=== PATIENT | male | born 1970 | race Caucasian/White ===

== ENCOUNTER → 2016-09-03 | Outpatient (CLI) | payer MEDICARE, MEDICAID ==
[~2016-09-03] MED LIST: IBUP200C PO
== END | disposition home or self-care (01) ==
LOC: WOUND 09:25
PROVIDERS: ATTEND Physician Assistant
DX: L89.44 Pressure ulcer of contiguous site of back, buttock and hip, stage 4 (principal); L89.150 Pressure ulcer of sacral region, unstageable; G82.21 Paraplegia, complete; M46.28 Osteomyelitis of vertebra, sacral and sacrococcygeal region; M86.5 Other chronic hematogenous osteomyelitis; S31.829D Unspecified open wound of left buttock, subsequent encounter; Z68.29 Body mass index [BMI] 29.0-29.9, adult; X58.XXXD Exposure to other specified factors, subsequent encounter; Z43.3 Encounter for attention to colostomy
CPT/HCPCS: 97597; 97598

== ENCOUNTER → 2016-09-11 | Outpatient (CLI) | payer MEDICARE, MEDICAID ==
[~2016-09-11] MED LIST changes: +FAMO20TA7 PO; +GUAI5SYR PO; +HEPA5000 SQ; +MUPI22OI2 TP
== END | disposition home or self-care (01) ==
LOC: WOUND 12:56
PROVIDERS: ATTEND Nurse Practitioner Family
DX: L89.44 Pressure ulcer of contiguous site of back, buttock and hip, stage 4 (principal); L89.150 Pressure ulcer of sacral region, unstageable; G82.21 Paraplegia, complete; K94.00 Colostomy complication, unspecified; M86.5 Other chronic hematogenous osteomyelitis; M46.28 Osteomyelitis of vertebra, sacral and sacrococcygeal region; E43 Unspecified severe protein-calorie malnutrition; Z68.29 Body mass index [BMI] 29.0-29.9, adult; Z86.14 Personal history of Methicillin resistant Staphylococcus aureus infection
CPT/HCPCS: 15273; 15274; G0463; Q4172; WOU0463

== ENCOUNTER 2017-01-07 22:02 | Inpatient (IN) | payer MEDICARE, MEDICAID ==
[~2017-01-07] VITALS: Ht 182.9 cm; Wt 93.0 kg
[2017-01-07] MEDS ORDERED: HYDROmorphone 1 MG/ML, 1ML IVPush PRN (23:00)
[2017-01-07] MEDS ORDERED: SODIUM CHLORIDE FLUSH 10ML SYR IVF ONE (23:00)
[2017-01-07] MEDS ORDERED: SODIUM CHLORIDE 0.9% 1,000ML IVBOLUS ONE (23:00)
[2017-01-07] MEDS ORDERED: ONDANSETRON 2MG/ML, 2ML IVPush ONE (23:00)
[2017-01-07] MEDS ORDERED: HYDROmorphone 1 MG/ML, 1ML ONE (23:12)
[2017-01-07] MEDS ORDERED: ONDANSETRON 2MG/ML, 2ML ONE (23:12)
[2017-01-07 23:20] LABS: ASPARTATE AMINO TRANSFERASE 10 U/L (15-37); BLOOD UREA NITROGEN 18 mg/dL (7-18)
[2017-01-08] MEDS ORDERED: VANCOMYCIN PER PHARMACY MC PRN
[2017-01-08] MEDS ORDERED: NS + 20MEQ KCL 1,000 ML IV SCH (00:01)
[2017-01-08] MEDS ORDERED: HYDROcodone/APAP 5/325 TABLET PO PRN (00:30)
[2017-01-08] MEDS ORDERED: morphine SULFATE 10 MG/ML, 1ML IVPush PRN (00:30)
[2017-01-08] MEDS ORDERED: DOCUSATE 100 MG CAPSULE PO PRN (00:30)
[2017-01-08] MEDS ORDERED: PHARMACOKINETIC MONITORING MC PRN (00:30)
[2017-01-08] MEDS ORDERED: ONDANSETRON 2MG/ML, 2ML IVPush PRN (00:30)
[2017-01-08] MEDS ORDERED: POLYETHYLENE GLYCOL 17 GM PACKET PO PRN (00:30)
[2017-01-08] MEDS ORDERED: VANCOMYCIN 2,000 MG in SODIUM CHLORIDE 0.9% 500 ML IV ONE (01:00)
[2017-01-08 01:12] VITALS: BP 107/51
[2017-01-08] MEDS: ENOXAPARIN 40 MG/0.4 ML SQ SCH ×2 (01:34→22:22)
[2017-01-08 02:54] VITALS: BP 106/53
[2017-01-08] MEDS ORDERED: DIPHENHYDRAMINE 50 MG CAPSULE PO PRN (03:30)
[2017-01-08] MEDS ORDERED: DIPHENHYDRAMINE 50 MG CAPSULE ONE (03:33)
[2017-01-08] MEDS: ACETAMINOPHEN 325 MG TABLET PO PRN (03:36)
[2017-01-08] MEDS ORDERED: DIPHENHYDRAMINE 50 MG CAPSULE PO ONE (03:46)
[2017-01-08 07:16] VITALS: BP 98/58
[2017-01-08] MEDS: ERTAPENEM 1 GM in SODIUM CHLORIDE 0.9% 50 ML IV SCH (07:57)
[2017-01-08] MEDS: SENNA/DOCUSATE TABLET PO SCH (07:57)
[2017-01-08 14:38] VITALS: BP 100/62
[2017-01-08] MEDS ORDERED: VANCOMYCIN 1,800 MG in SODIUM CHLORIDE 0.9% 250 ML IV SCH (19:30)
[2017-01-08 20:25] VITALS: BP 117/67
[2017-01-09 02:00] VITALS: BP 115/73
[2017-01-09 05:55] LABS: ASPARTATE AMINO TRANSFERASE 11 U/L (15-37); BLOOD UREA NITROGEN 12 mg/dL (7-18)
[2017-01-09 07:40] VITALS: BP 108/71
[2017-01-09] MEDS: ZINC SULFATE 220 MG CAPSULE PO SCH (08:35)
[2017-01-09] MEDS: ERTAPENEM 1 GM in SODIUM CHLORIDE 0.9% 50 ML IV SCH (08:35)
[2017-01-09] MEDS: MULTIVITAMIN 1 TABLET PO SCH (08:35)
[2017-01-09] MEDS: SENNA/DOCUSATE TABLET PO SCH (08:36)
[2017-01-09] MEDS: DAKIN'S SOLUTION 1/4 STRENGTH 1,000 ML IRRIG SOLN EXT SCH (10:00)
[2017-01-09] MEDS: VANCOMYCIN 1,800 MG in SODIUM CHLORIDE 0.9% 250 ML IV SCH ×2 (13:53→23:13)
[2017-01-09 14:00] VITALS: BP 108/56
[2017-01-09] MEDS: ACETAMINOPHEN 325 MG TABLET PO PRN (18:08)
[2017-01-09 20:06] VITALS: BP 118/71
[2017-01-10] MEDS: ENOXAPARIN 40 MG/0.4 ML SQ SCH ×2 (02:01→23:51)
[2017-01-10 02:02] VITALS: BP 115/75
[2017-01-10 08:49] VITALS: BP 120/82
[2017-01-10] MEDS: DAKIN'S SOLUTION 1/4 STRENGTH 1,000 ML IRRIG SOLN EXT SCH (09:00)
[2017-01-10] MEDS: SENNA/DOCUSATE TABLET PO SCH (09:00)
[2017-01-10 09:39] VITALS: BP 126/63
[2017-01-10] MEDS: MULTIVITAMIN 1 TABLET PO SCH (09:45)
[2017-01-10] MEDS: ZINC SULFATE 220 MG CAPSULE PO SCH (09:45)
[2017-01-10 13:22] VITALS: BP 109/71
[2017-01-10] MEDS: ERTAPENEM 1 GM in SODIUM CHLORIDE 0.9% 50 ML IV SCH (16:11)
[2017-01-10] MEDS: VANCOMYCIN 1,800 MG in SODIUM CHLORIDE 0.9% 250 ML IV SCH (17:30)
[2017-01-10] MEDS ORDERED: OMNIPAQUE 350 MG/ML, 100ML BOTTLE ONE (20:52)
[2017-01-10 21:23] VITALS: BP 116/62
[2017-01-11 01:58] VITALS: BP 126/73
[2017-01-11] MEDS: VANCOMYCIN 1,800 MG in SODIUM CHLORIDE 0.9% 250 ML IV SCH ×2 (05:15→17:29)
[2017-01-11 05:54] LABS: BLOOD UREA NITROGEN 15 mg/dL (7-18)
[2017-01-11 07:49] VITALS: BP 107/66
[2017-01-11] MEDS: SENNA/DOCUSATE TABLET PO SCH (09:00)
[2017-01-11] MEDS: DAKIN'S SOLUTION 1/4 STRENGTH 1,000 ML IRRIG SOLN EXT SCH (09:00)
[2017-01-11] MEDS ORDERED: BUPIVACAINE/PF 0.5% ONE (09:08)
[2017-01-11] MEDS ORDERED: EPINEPHRINE 1 MG/ML, 1ML ONE (09:08)
[2017-01-11] MEDS ORDERED: PROPOFOL 10 MG/ML, 20ML ONE (09:28)
[2017-01-11] MEDS ORDERED: CEFOTETAN 2 GM ONE (09:28)
[2017-01-11] MEDS ORDERED: DEXAMETHASONE 4 MG/ML, 1ML ONE (09:28)
[2017-01-11] MEDS ORDERED: ROCURONIUM 10 MG/ML ONE (09:28)
[2017-01-11] MEDS ORDERED: ONDANSETRON 2MG/ML, 2ML ONE (09:28)
[2017-01-11] MEDS ORDERED: ACETAMINOPHEN 325 MG TABLET PO PRN (10:30)
[2017-01-11] MEDS ORDERED: METOCLOPRAMIDE 5 MG/ML, 2ML IV PRN (10:30)
[2017-01-11] MEDS ORDERED: ONDANSETRON 2MG/ML, 2ML IVPush PRN (10:30)
[2017-01-11] MEDS ORDERED: OXYcodone 5 MG/5 ML ORAL.SOL UDC PO PRN (10:30)
[2017-01-11] MEDS ORDERED: hydrALAzine 20 MG/ML, 1ML IV PRN (10:30)
[2017-01-11] MEDS ORDERED: LABETALOL 5MG/ML, 20ML IV PRN (10:30)
[2017-01-11] MEDS: FENTANYL PF 100 MCG/2ML IV PRN ×2 (13:12→13:25)
[2017-01-11] MEDS ORDERED: HYDROcodone/APAP 7.5-325MG/15ML UDC PO ONE (13:30)
[2017-01-11] MEDS: HYDROmorphone 1 MG/ML, 1ML IV PRN ×5 (13:32→22:12)
[2017-01-11] MEDS ORDERED: SUGAMMADEX 200 MG/2 ML IVPush ONE (13:51)
[2017-01-11] MEDS ORDERED: KETOROLAC 30 MG/1 ML IVPush ONE (14:30)
[2017-01-11] MEDS ORDERED: ONDANSETRON 2MG/ML, 2ML IV PRN (15:00)
[2017-01-11] MEDS ORDERED: HYDROmorphone 1 MG/ML, 1ML IV PRN (15:00)
[2017-01-11] MEDS ORDERED: OXYcodone/APAP 5/325MG TABLET PO PRN (15:00)
[2017-01-11] MEDS ORDERED: DIPHENHYDRAMINE 50 MG/ML, 1ML IV PRN (15:00)
[2017-01-11] MEDS ORDERED: LORazepam 2 MG/ML, 1ML IV PRN (15:00)
[2017-01-11] MEDS ORDERED: DIPHENHYDRAMINE 25 MG CAPSULE PO PRN (15:00)
[2017-01-11] MEDS ORDERED: LORazepam 1MG TABLET PO PRN (15:00)
[2017-01-11] MEDS: ZINC SULFATE 220 MG CAPSULE PO SCH (16:08)
[2017-01-11] MEDS: POTASSIUM CHLORIDE 20 MEQ in SODIUM CHLORIDE 0.9% 1,000 ML IV SCH (16:08)
[2017-01-11] MEDS: MULTIVITAMIN 1 TABLET PO SCH (16:08)
[2017-01-11] MEDS: ERTAPENEM 1 GM in SODIUM CHLORIDE 0.9% 50 ML IV SCH (16:08)
[2017-01-11 16:26] VITALS: BP 100/67
[2017-01-11 18:37] VITALS: BP 101/64
[2017-01-11] MEDS: KETOROLAC 30 MG/1 ML IV SCH (20:03)
[2017-01-12] MEDS: HYDROmorphone 1 MG/ML, 1ML IV PRN ×5 (00:09→13:09)
[2017-01-12 00:43] VITALS: BP 131/68
[2017-01-12] MEDS: KETOROLAC 30 MG/1 ML IV SCH ×4 (02:09→20:11)
[2017-01-12 05:17] VITALS: BP 100/63
[2017-01-12] MEDS: VANCOMYCIN 1,800 MG in SODIUM CHLORIDE 0.9% 250 ML IV SCH (05:30)
[2017-01-12 05:45] LABS: ASPARTATE AMINO TRANSFERASE 10 U/L (15-37); BLOOD UREA NITROGEN 15 mg/dL (7-18)
[2017-01-12 08:40] VITALS: BP 98/61
[2017-01-12] MEDS: ENOXAPARIN 40 MG/0.4 ML SQ SCH (09:00)
[2017-01-12] MEDS: MULTIVITAMIN 1 TABLET PO SCH (09:00)
[2017-01-12] MEDS: DAKIN'S SOLUTION 1/4 STRENGTH 1,000 ML IRRIG SOLN EXT SCH (09:00)
[2017-01-12] MEDS: ZINC SULFATE 220 MG CAPSULE PO SCH (09:12)
[2017-01-12] MEDS: SENNA/DOCUSATE TABLET PO SCH (09:12)
[2017-01-12] MEDS ORDERED: MAGNESIUM SULFATE PMX 2GM/50ML 50 ML IV ONE (12:00)
[2017-01-12 15:03] VITALS: BP 113/72
[2017-01-12 15:35] LABS: IS PT STATUS REG ER OR PRE ER? NO
[2017-01-12] MEDS: ERTAPENEM 1 GM in SODIUM CHLORIDE 0.9% 50 ML IV SCH (16:12)
[2017-01-12] MEDS: POTASSIUM CHLORIDE 20 MEQ in SODIUM CHLORIDE 0.9% 1,000 ML IV SCH ×2 (16:12→22:09)
[2017-01-12] MEDS: MORPHINE SULFATE 4 MG/ML, 1ML IVPush PRN (20:10)
[2017-01-12 20:23] VITALS: BP 117/69
[2017-01-12 22:49] LABS: IS PT STATUS REG ER OR PRE ER? NO
[2017-01-13] MEDS: MORPHINE SULFATE 4 MG/ML, 1ML IVPush PRN ×3 (00:23→16:24)
[2017-01-13] MEDS: KETOROLAC 30 MG/1 ML IV SCH ×5 (03:21→22:32)
[2017-01-13 03:28] VITALS: BP 123/69
[2017-01-13 04:05] LABS: BLOOD UREA NITROGEN 13 mg/dL (7-18)
[2017-01-13 04:23] LABS: IS PT STATUS REG ER OR PRE ER? NO
[2017-01-13 07:47] VITALS: BP 114/78
[2017-01-13] MEDS: MAGNESIUM OXIDE 400 MG TABLET PO SCH (08:17)
[2017-01-13] MEDS: ZINC SULFATE 220 MG CAPSULE PO SCH (08:17)
[2017-01-13] MEDS: MULTIVITAMIN 1 TABLET PO SCH (08:17)
[2017-01-13] MEDS: SENNA/DOCUSATE TABLET PO SCH (08:17)
[2017-01-13] MEDS: ENOXAPARIN 40 MG/0.4 ML SQ SCH (08:18)
[2017-01-13] MEDS: DAKIN'S SOLUTION 1/4 STRENGTH 1,000 ML IRRIG SOLN EXT SCH (09:00)
[2017-01-13] MEDS: ERTAPENEM 1 GM in SODIUM CHLORIDE 0.9% 50 ML IV SCH (16:23)
[2017-01-13 16:24] VITALS: BP 124/85
[2017-01-13] MEDS: POTASSIUM CHLORIDE 20 MEQ in SODIUM CHLORIDE 0.9% 1,000 ML IV SCH (19:09)
[2017-01-13 22:04] VITALS: BP 123/81
[2017-01-14] MEDS ORDERED: VANCOMYCIN 1,800 MG in SODIUM CHLORIDE 0.9% 250 ML IV ONE (04:00)
[2017-01-14] MEDS: KETOROLAC 30 MG/1 ML IV SCH ×4 (04:13→19:52)
[2017-01-14 06:21] LABS: BLOOD UREA NITROGEN 18 mg/dL (7-18)
[2017-01-14 06:32] LABS: ASPARTATE AMINO TRANSFERASE 15 U/L (15-37)
[2017-01-14] MEDS: SENNA/DOCUSATE TABLET PO SCH ×2 (09:00→09:09)
[2017-01-14] MEDS: DAKIN'S SOLUTION 1/4 STRENGTH 1,000 ML IRRIG SOLN EXT SCH (09:00)
[2017-01-14] MEDS: MULTIVITAMIN 1 TABLET PO SCH (09:09)
[2017-01-14] MEDS: MAGNESIUM OXIDE 400 MG TABLET PO SCH (09:09)
[2017-01-14] MEDS: ZINC SULFATE 220 MG CAPSULE PO SCH (09:09)
[2017-01-14] MEDS: ENOXAPARIN 40 MG/0.4 ML SQ SCH (09:09)
[2017-01-14 15:06] VITALS: BP 117/72
[2017-01-14] MEDS: ERTAPENEM 1 GM in SODIUM CHLORIDE 0.9% 50 ML IV SCH ×2 (16:00→19:52)
[2017-01-14] MEDS: POTASSIUM CHLORIDE 20 MEQ in SODIUM CHLORIDE 0.9% 1,000 ML IV SCH (17:12)
[2017-01-14 19:53] VITALS: BP 143/76
[2017-01-14] MEDS: MORPHINE SULFATE 4 MG/ML, 1ML IVPush PRN (20:01)
[2017-01-14] MEDS: DRONABINOL 5 MG CAPSULE PO SCH (21:44)
[2017-01-15] MEDS: MULTIVITAMIN 1 TABLET PO SCH (08:02)
[2017-01-15] MEDS: SENNA/DOCUSATE TABLET PO SCH (08:02)
[2017-01-15] MEDS: ZINC SULFATE 220 MG CAPSULE PO SCH (08:02)
[2017-01-15] MEDS: MAGNESIUM OXIDE 400 MG TABLET PO SCH (08:02)
[2017-01-15 08:03] VITALS: BP 123/77
[2017-01-15] MEDS: ENOXAPARIN 40 MG/0.4 ML SQ SCH (08:03)
[2017-01-15] MEDS: DRONABINOL 5 MG CAPSULE PO SCH (08:20)
[2017-01-15] MEDS: MORPHINE SULFATE 4 MG/ML, 1ML IVPush PRN ×2 (12:50→17:31)
[2017-01-15] MEDS: POTASSIUM CHLORIDE 20 MEQ in SODIUM CHLORIDE 0.9% 1,000 ML IV SCH (13:24)
[2017-01-15 15:42] VITALS: BP 110/68
[2017-01-15] MEDS: ERTAPENEM 1 GM in SODIUM CHLORIDE 0.9% 50 ML IV SCH (15:42)
[2017-01-15] MEDS ORDERED: OXYC1TAB7 PO (17:20)
[2017-01-15] MEDS ORDERED: MULT1TAB60 PO (17:20)
[2017-01-15] MEDS ORDERED: DIPH50VI4 IV (17:20)
[2017-01-15] MEDS ORDERED: DOCU-30 PO (17:20)
[2017-01-15] MEDS ORDERED: DIPH25CA61 PO (17:20)
[2017-01-15] MEDS ORDERED: LORA2VIA4 IV (17:20)
[2017-01-15] MEDS ORDERED: MORP4VIA IVPush (17:20)
[2017-01-15] MEDS ORDERED: MAGN400T26 PO (17:20)
[2017-01-15] MEDS ORDERED: DRON5CAP15 PO (17:20)
[2017-01-15] MEDS ORDERED: ONDA4VIA4 IV (17:20)
[2017-01-15] MEDS ORDERED: ENOX40SY4 SQ (17:20)
[2017-01-15] MEDS ORDERED: Vancomycin Per Pharmacy MC (17:20)
[2017-01-15] MEDS ORDERED: ACET325T14 PO (17:20)
[2017-01-15] MEDS ORDERED: LORA-446 PO (17:20)
[2017-01-15] MEDS ORDERED: SENN1TAB7 PO (17:20)
[2017-01-15] MEDS ORDERED: ERTA1VIA IV (17:20)
[2017-01-15] MEDS ORDERED: ZINC220C5 PO (17:20)
== END 2017-01-15 18:00 | DRG 853 ==
LOC: ED 23:15 → EDIP 23:29 → SUATTDRO 23:46 → 4NOR 01-08 00:18
PROVIDERS: ADMIT Family Medicine; ATTEND Family Medicine
PROC: 0DTP4ZZ Resection of Rectum, Percutaneous Endoscopic Approach (ICD-10-PCS; principal; 2017-01-07)
PROC: 8E0W4CZ Robotic Assisted Procedure of Trunk Region, Percutaneous Endoscopic Approach (ICD-10-PCS; 2017-01-07)
PROC: 02HV33Z Insertion of Infusion Device into Superior Vena Cava, Percutaneous Approach (ICD-10-PCS; 2017-01-10)
PROC: B548ZZA Ultrasonography of Superior Vena Cava, Guidance (ICD-10-PCS; 2017-01-10)
DX: A41.9 Sepsis, unspecified organism (principal); E43 Unspecified severe protein-calorie malnutrition; L89.324 Pressure ulcer of left buttock, stage 4; L89.314 Pressure ulcer of right buttock, stage 4; G82.20 Paraplegia, unspecified; M86.60 Other chronic osteomyelitis, unspecified site; N02.9 Recurrent and persistent hematuria with unspecified morphologic changes; N39.0 Urinary tract infection, site not specified; K43.5 Parastomal hernia without obstruction or gangrene; L89.309 Pressure ulcer of unspecified buttock, unspecified stage; N31.9 Neuromuscular dysfunction of bladder, unspecified; Z16.12 Extended spectrum beta lactamase (ESBL) resistance; L89.159 Pressure ulcer of sacral region, unspecified stage; D50.9 Iron deficiency anemia, unspecified; B96.20 Unspecified Escherichia coli [E. coli] as the cause of diseases classified elsewhere; D75.89 Other specified diseases of blood and blood-forming organs; E83.42 Hypomagnesemia; Z68.27 Body mass index [BMI] 27.0-27.9, adult; Y93.23 Activity, snow (alpine) (downhill) skiing, snowboarding, sledding, tobogganing and snow tubing; Z91.19 Patient's noncompliance with other medical treatment and regimen; Z93.3 Colostomy status; Z99.3 Dependence on wheelchair; Z79.899 Other long term (current) drug therapy; R07.89 Other chest pain
CPT/HCPCS: 36415; 36569; 71010; 72190; 74177; 76937; 77001; 80048; 80053; 80061; 80202; 81001; 83605; 83735; 84100; 84145; 84443; 84484; 85025; 85651; 86140; 87040; 87070; 87077; 87086; 87147; 87186; 87205; 88307; 93005; 96361; 96374; 96375; C1729; J0171; J1100; J1170; J1335; J1650; J1885; J2250; J2405; J2704; J3010; J3370; J3480; J3490; Q0167; Q9967; C1751; J3475; J7030; J7040; J7050; S0074